=== PATIENT | female | born 1985 | race Two or more races ===

== ENCOUNTER 2019-08-04 05:52 | Emergency (ER) | payer OTHER ==
[~2019-08-04] VITALS: Ht 152.4 cm; Wt 75.9 kg
[2019-08-04 05:56] VITALS: Ht 152.4 cm; Wt 75.9 kg
[2019-08-04 07:07] LABS: BASOPHILS 0.1 % (0-2); EOSINOPHILS 0.9 % (0-7); HEMATOCRIT 39.5 % (36.0-48.0); HEMOGLOBIN 13.5 g/dL (12-16); IMMATURE GRANULOCYTES 0.3 % (0-5); LYMPHOCYTES 21.9 % (15-50); MCH 29.6 pg (26.0-34.0); MCHC 34.2 g/dL (31.0-37.0); MCV 86.6 fL (80.0-100.0); MEAN PLATELET VOLUME 11.7 fL (7.4-10.4); MONOCYTES 5.5 % (2-11); NEUTROPHILS 71.3 % (40-80); PLATELET COUNT 291 10x3/uL (130-400); RBC 4.56 10x6/uL (4.00-5.40); RDW 12.6 % (11.5-14.5); WBC 12.9 10x3/uL (4.8-10.8)
[2019-08-04 07:15] LABS: CALC OSMOLALITY 275 mosm/kg (275-300); CARBON DIOXIDE 25.2 mmol/L (21.0-32.0); CHLORIDE - SERUM 102 mmol/L (98-107); CREATININE - SERUM 0.7 mg/dL (0.6-1.3); GLUCOSE 94 mg/dL (74-106); POTASSIUM - SERUM 3.8 mmol/L (3.5-5.1); SODIUM 138 mmol/L (136-145); UREA NITROGEN 13 mg/dL (7-18); eGFR NON AFRICAN AMERICAN > 90 mL/min (90-120)
[2019-08-04 07:28] LABS: ALBUMIN 3.6 g/dL (3.4-5.0); ALKALINE PHOSPHATASE 77 U/L (46-116); ALT (SGPT) 82 U/L (10-68); BILIRUBIN - TOTAL 0.47 mg/dL (0.2-1.3); HCG - QUANTITATIVE (MATERNAL) 48 mIU/mL; PROTEIN - SERUM 7.3 g/dL (6.4-8.2)
[2019-08-04 08:45] VITALS: BP 170/88
[2019-08-04 08:45] LABS: APPEARANCE SL CLDY (CLEAR); COLOR YELLOW (YELLOW); GLUCOSE NEGATIVE (NEGATIVE); KETONE NEGATIVE (NEGATIVE); NITRITE NEGATIVE (NEGATIVE); PROTEIN TRACE mg/dL (NEGATIVE)
[2019-08-04 08:46] LABS: AMORPHOUS SEDIMENT <1+ /lpf (NONE SEEN); BACTERIA FEW /hpf (NEGATIVE); BILIRUBIN NEGATIVE (NEGATIVE); EPITHELIAL CELLS 0-5 /hpf (0-5); MUCUS <1+ /lpf (NONE SEEN); UROBILINOGEN NORMAL (NORMAL); WHITE CELLS - URINE NSEEN /hpf (NEGATIVE)
[2019-08-04 12:44] VITALS: Ht 152.4 cm; Wt 75.9 kg
== END 2019-08-04 08:50 | disposition home or self-care (01) ==
LOC: D.ER 05:52
PROVIDERS: Emergency Medicine; Family Medicine
DX: O46.91 Antepartum hemorrhage, unspecified, first trimester (principal); Z3A.01 Less than 8 weeks gestation of pregnancy

== ENCOUNTER 2019-08-04 11:15 | Day surgery (SDC) | payer OTHER ==
[~2019-08-04] VITALS: Ht 152.4 cm; Wt 75.8 kg
[2019-08-04 12:44] VITALS: Ht 152.4 cm; Wt 75.8 kg
--- NOTE | 2019-08-04 16:42 | NUR ---
1600 IV REMOVED AND PRESSURE HELD. 1610 VOIDED IN BATHROOM, GOOD AMT 1615 D/C HOME
--- NOTE | 2019-08-07 09:07 | OP ---
PATIENT NAME: JASPREET GIL MEDICAL RECORD: [id number] :85 [facility] ADMISSION DATE: SURGEON: STANFORD KELLER MD DATE OF OPERATION: 08/04/2019 PREOPERATIVE DIAGNOSIS: Incomplete . POSTOPERATIVE DIAGNOSIS: Incomplete . PROCEDURE: Dilation and evacuation. SURGEON: Stanford Keller MD ANESTHESIOLOGIST: Dr. Gibbons ANESTHESIA: General. FINDINGS: Uterus approximately 9-10 weeks in size. Cervix with active bleeding otherwise is unremarkable. SPECIMENS REMOVED: Products of conception. SPECIMEN DISPOSITION: Pathology. ESTIMATED BLOOD LOSS: Minimal. FLUIDS: 700 lactated Ringer's. URINE OUTPUT: Quantity sufficient void prior to this procedure. COMPLICATIONS: None. DRAINS: None. INDICATIONS: The patient is a 34-year-old female who presented to the Emergency Room this morning with severe cramps and bleeding. The patient had a known . Ultrasound shows a gestational sac in the lower uterine segment. The patient is evaluated and taken to the operating room for D and C for an incomplete . DESCRIPTION OF PROCEDURE: After informed consent was assured, the patient was taken to the operating room, anesthetic was obtained. The patient was placed in Yellofin stirrups and prepped and draped. The cervix was identified with the use of a vaginal speculum, the cervix grasped with a single tooth tenaculum and serially dilated to accommodate a #9 curved suction curette. The suction curette was passed gently to the fundus and suction activated at 65 mmHg. The products of conception were removed in several passes. Sharp curettage was now performed with good cry throughout. The single tooth tenaculum was removed and some bleeding was noted from the puncture site. A ring forceps is placed over the tenaculum sites for hemostasis. Sponge, lap, needle counts were correct times 2. The patient was awakened and taken to the recovery room in stable condition. TRANSINT:[id number] Voice Confirmation ID: [id number] DOCUMENT ID: [id number] OPERATIVE REPORT [id number] JASPREET GIL STANFORD KELLER MD at 0907 CC: [id number] DICTATION DATE: 08/04/19 1437 SOLE SCRAPER: 08/04/19 2324 [facility] 08/04/19 [id number] [place] [address]
== END 2019-08-04 16:15 | disposition home or self-care (01) ==
LOC: D.OPS 11:15
PROVIDERS: ATTEND Obstetrics & Gynecology
DX: O03.4 Incomplete spontaneous abortion without complication (principal)